=== PATIENT | female | born 1995 | race Caucasian/White ===

== ENCOUNTER 2016-07-17 18:01 | Emergency (ER) | payer MEDICAID, OTHER ==
[~2016-07-17] VITALS: Ht 162.6 cm; Wt 67.5 kg
[2016-07-17 18:05] VITALS: Ht 162.6 cm; Wt 67.5 kg
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
[2016-07-17] MEDS ORDERED: KETOROLAC 15 MG INJ IM STA (19:32)
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
[2016-07-17] MEDS ORDERED: ACET325T33 PO (21:08)
== END 2016-07-17 21:52 | disposition home or self-care (01) ==
LOC: FTE 18:01
DX: G44.209 Tension-type headache, unspecified, not intractable (principal); R07.89 Other chest pain
CPT/HCPCS: 71110; J1885